=== PATIENT | female | born 1995 | race Caucasian/White ===

== ENCOUNTER 2016-02-28 23:03 | Emergency (ER) | payer MEDICAID ==
[~2016-02-28] VITALS: Ht 157.5 cm; Wt 52.5 kg
[2016-02-28 23:26] VITALS: Ht 157.5 cm; Wt 52.5 kg
[2016-02-29] MEDS ORDERED: BEN25 PO (02:41)
[2016-02-29] MEDS ORDERED: HC1C30 TOP (02:41)
--- NOTE | 2016-02-29 02:46 | ERD ---
ER Documentation Chief Complaint Date/Time DATE: 02/29/16 TIME: 02:42 Chief Complaint scaterred body rashes HPI Patient is a 20-year-old female who presents to the emergency department with diffuse body rash and itching. Patient states that she spent last night at her cousin's house and when she woke up this morning, she noticed lesions to her hands, wrists and legs. Lesions are erythematous and itchy. Patient denies any new creams, new foods, new environment or new pets. Patient denies any throat swelling, tongue swelling, shortness of breath. Patient denies any fevers, chills, nausea, vomiting. Patient states her LMP=6 months ago. Patient is currently on OCPs. ROS All systems reviewed and are negative except as per history of present illness. Medications Home Meds Active Scripts Diphenhydramine Hcl* (Benadryl*) 25 Mg Cap, 25 MG PO Q6, #30 CAP Prov:CONNIE CORDERO PA-C 02/29/16 Hydrocortisone* Topical (Hydrocortisone* Topical) 1%-28.35 Gm Cream..g., 1 APPLIC TOP Q6 Y for ITCHING, #1 TUB Prov:CONNIE CORDERO PA-C 02/29/16 Reported Medications [None] No Conflict Check 04/15/09 Allergies Allergies: Coded Allergies: No Known Allergy (Verified , 01/21/12) PMhx/Soc History of Surgery: No Hx Neurological Disorder: No Hx Respiratory Disorders: No Hx Cardiac Disorders: No Hx Miscellaneous Medical Probl: No Hx Alcohol Use: No Hx Substance Use: No Hx Tobacco Use: No Physical Exam Vitals Vital Signs Date Time Temp Pulse Resp B/P Pulse Ox O2 Delivery O2 Flow Rate FiO2 02/28/16 23:26 98.3 98 20 134/60 100 Physical Exam GENERAL: Well-developed, well-nourished female. Appears in no acute distress. Speaking in full sentences HEAD: Normocephalic, atraumatic. No deformities or ecchymosis. EYE: Pupils equal, round, and reactive to light. EOMs intact. No conjunctival erythema. No scleral icterus. No eye discharge. ENT: External ear without any masses or tenderness. Auditory canals clear bilaterally. TM visualized bilaterally, non-erythematous, non-bulging. Nasal mucosa pink with no discharge. Oropharynx is pink without any tonsillar erythema or exudates. No uvula deviation. No kissing tonsils. No throat swelling. No tongue swelling. NECK: Supple. No lymphadenopathy or thyromegaly. No meningismus.Trachea midline. LUNG: Clear to auscultation bilaterally. No rhonchi, wheezing, rales or coarse breath sounds. HEART: Regular rate and rhythm. No murmurs, rubs or gallops. ABDOMEN: Soft, nontender, and nondistended. Positive bowel sounds in all four quadrants. No rebound tenderness, no guarding. (-) McBurney's point tenderness. No CVA tenderness. BACK: No midline tenderness. EXTREMITES: Equal pulses bilaterally. No peripheral clubbing, cyanosis or edema. No unilateral leg swelling. NEUROLOGIC: Alert and oriented to person, place and time. Moving all four extremities. 5/5 strength in all extremities. Normal speech. Steady gait. (-) Brudzinski sign- no flexion of the hips and knees noted with neck flexion. (-) Kernigs sign- patient able to extend knee to 180 degrees with hip flexion, no hamstring stiffness noted. SKIN: Normal color. Warm and dry. Numerous circular erythematous papular lesions noted on bilateral hands, wrists and lower legs. No lymphatic streaking. No signs of extremity swelling or warmth. Results 24 hrs Current Medications Medications (Trade) Dose Ordered Sig/Terri Route PRN Reason Start Time Stop Time Status Last Admin Dose Admin Diphenhydramine HCl (Benadryl) 25 mg ONCE ONCE PO 02/29/16 03:00 02/29/16 03:00 DC 02/29/16 02:56 Procedures/MDM MEDICAL DECISION MAKING: This is a 20-year-old female who presents with numerous erythematous papular lesions throughout her body. Patient stated the lesions are itchy in nature. Vital signs were reviewed. Patient was afebrile. Patient is not diabetic. Patient was given benadryl here in the emergency department which she reported did help with the itching. Given these findings, the patients presentation is most consistent with insect bites. I have a much lower clinical concern for necrotizing fasciitis, sepsis, gangrene, Rich-Jean Pierre syndrome, toxic epidural necrolysis, cellulitis, herpes zoster, viral exanthem, anaphylaxis, allergic reaction, allergic contact dermatitis, irritant contact dermatitis, fungal infection. PRESCRIPTIONS: Benadryl Hydrocortisone cream DISCHARGE: At this time, patient is stable for discharge and outpatient management. I have advised the patient to avoid scratching the lesions. I have instructed the patient to follow-up with his/her primary care physician in 1-2 days. If symptoms persist, patient may need to see a riveter hand for further examinations and testing. I have instructed the patient to promptly return to the ER at any time for any new or worsening symptoms including increased pain, fever, redness, swelling, warmth, difficulty breathing or vomiting. The patient and/or family expressed understanding of and agreement with this plan. All questions were answered. Home care instructions were provided. Departure Diagnosis: Primary Impression: Bug bite Encounter type: initial encounter Qualified Code: W57.XXXA - Bug bite, initial encounter Additional Impression: Rash Condition: Stable Patient Instructions: Self-Care for Skin Rashes, Insect Bites and Stings Additional Instructions: Call your primary care doctor TOMORROW for an appointment during the next 1-2 days.See the doctor sooner or return here if your condition worsens before your appointment time. Return for any new or worsening symptoms including difficulty breathing, shortness of breath, tongue swelling, throat swelling, fevers, chills, warmth, swelling. Avoid scratching affected areas. CONNIE CORDERO PA-C Feb 29, 2016 02:46
[2016-02-29] MEDS ORDERED: DIPHENHYDRAMINE 25 MG CAP PO ONE (03:00)
== END 2016-02-29 02:56 | disposition home or self-care (01) ==
LOC: FTE 23:03
DX: R21 Rash and other nonspecific skin eruption (principal); W57.XXXA Bitten or stung by nonvenomous insect and other nonvenomous arthropods, initial encounter
CPT/HCPCS: Z7502; Z7610; 99283

== ENCOUNTER 2016-03-27 10:12 | Emergency (ER) | payer MEDICAID, OTHER ==
[~2016-03-27] VITALS: Ht 165.1 cm; Wt 51.5 kg
[~2016-03-27 10:12] MED LIST: BEN25 PO; HC1C30 TOP
[2016-03-27 10:14] VITALS: Ht 165.1 cm; Wt 51.5 kg
[2016-03-27] MEDS ORDERED: SOD CHLORIDE 0.9% 1,000 ML IV STA (10:45)
[2016-03-27 10:58] LABS: URINE BLOOD (Dip) POC Negative (NEGATIVE)
[2016-03-27 11:23] LABS: BASOPHILS % 0.1 % (0.0-2.0); HEMATOCRIT 41.2 % (37.0-47.0); HEMOGLOBIN 14.2 g/dl (12.0-16.0); LYMPHOCYTES # 0.9 10^3/ul (0.8-2.9); LYMPHOCYTES % 8.6 % (18.0-55.0); MEAN CORPUSCULAR HEMOGLOBIN 31.3 pg (29.0-33.0); MEAN CORPUSCULAR HGB CONC 34.4 g/dl (32.0-37.0); MEAN CORPUSCULAR VOLUME 91.1 fl (72.0-104.0); MEAN PLATELET VOLUME 7.6 fl (7.4-10.4); MONOCYTE # 0.6 10^3/ul (0.3-0.9); MONOCYTES % 6.1 % (0.0-13.0); NEUTROPHIL # 8.9 10^3/ul (1.6-7.5); NEUTROPHILS % 85.2 % (30.0-74.0); PLATELET COUNT 218 10^3/UL (140-440); RED BLOOD COUNT 4.52 10^6/ul (4.20-5.40); RED CELL DISTRIBUTION WIDTH 13.4 % (11.5-14.5); UNCORRECTED WBC 10.4 10^3/ul (4.8-10.8); WHITE BLOOD COUNT 10.4 10^3/ul (4.8-10.8)
[2016-03-27 11:25] LABS: ALBUMIN 4.7 g/dl (3.3-4.9); POTASSIUM 4.4 mmol/L (3.5-5.1)
[2016-03-27 11:27] LABS: CREATININE 1.29 mg/dl (0.44-1.00)
[2016-03-27 11:28] LABS: ALBUMIN/GLOBULIN RATIO 1.46; BILIRUBIN,INDIRECT 0.8 mg/dl (0-1.1); BILIRUBIN,TOTAL 0.8 mg/dl (0.2-1.3); TOTAL PROTEIN 7.9 g/dl (6.1-8.1)
[2016-03-27 11:31] LABS: CONDITION 1
[2016-03-27] MEDS ORDERED: ONDANSETRON 4 MG INJ IV STA (12:06)
[2016-03-27] MEDS ORDERED: ONDA4TAB14 PO (13:29)
[2016-03-27 13:40] VITALS: BP 116/67; PULSE 88; RESP 18; TEMP 98.1
--- NOTE | 2016-03-27 14:29 | ERD ---
ER Documentation Chief Complaint Date/Time DATE: 03/27/16 TIME: 14:23 Chief Complaint vomiting started yesterday,s/p wisdom tooth removal HPI 20-year-old female with no significant past medical history presents the ED complaining of nausea and vomiting after receiving anesthesia yesterday for a wisdom tooth removal. States that she got 4 with some teeth removed yesterday. States that she has had slight loss of appetite. Reports that she is taking amoxicillin, ibuprofen, [place]. States that she was unable to keep any food or water down. Denies any fever, chills, abdominal pain, nausea, vomiting, diarrhea. ROS All systems reviewed and are negative except as per history of present illness. Medications Home Meds Active Scripts Ondansetron (Ondansetron Odt) 4 Mg Tab.rapdis, 4 MG PO Q6H Y for NAUSEA AND/OR VOMITING, #10 TAB Prov:PARTH DOYLE PA-C 03/27/16 Diphenhydramine Hcl* (Benadryl*) 25 Mg Cap, 25 MG PO Q6, #30 CAP Prov:CONNIE CORDERO PA-C 02/29/16 Hydrocortisone* Topical (Hydrocortisone* Topical) 1%-28.35 Gm Cream..g., 1 APPLIC TOP Q6 Y for ITCHING, #1 TUB Prov:CONNIE CORDERO PA-C 02/29/16 Reported Medications [None] No Conflict Check 04/15/09 Allergies Allergies: Coded Allergies: No Known Allergy (Verified , 03/27/16) PMhx/Soc History of Surgery: No Hx Neurological Disorder: No Hx Respiratory Disorders: No Hx Cardiac Disorders: No Hx Miscellaneous Medical Probl: No Hx Alcohol Use: No Hx Substance Use: No Hx Tobacco Use: No Smoking Status: Never smoker Physical Exam Vitals Vital Signs Date Time Temp Pulse Resp B/P Pulse Ox O2 Delivery O2 Flow Rate FiO2 03/27/16 13:40 98.1 88 18 116/67 98 Room Air 03/27/16 10:14 97.1 110 18 119/74 98 Physical Exam Const: [id number], well-nourished. In no acute distress. Head: Atraumatic, normocephalic Eyes: Normal Conjunctiva without injection. No purulent discharge. ENT: Normal external ear, nose. Moist oropharynx without tonsillar exudates. Non -erythematous pharynx. Uvula midline. No drooling. No trismus. Neck: No cervical midline tenderness. Full range of motion. No meningismus. No cervical lymphadenopathy. No JVD. Resp: Clear to auscultation bilaterally. No wheezing, rhonchi, rales, or crackles. No accessory muscle use. No retractions. Cardio: Regular rate and rhythm. No murmurs, rubs or gallops. Abd: Soft, nontender to palpation, non distended. Normal bowel sounds. No palpable masses. No rebound tenderness. No guarding. Negative McBurney's point. Negative psoas sign. Negative obturator sign. Skin: No petechiae or rashes Back: No midline tenderness. No CVA tenderness. Ext: No cyanosis, or edema. Neur: Awake and alert. Normal gait. Normal coordination. Psych: Normal Mood and Affect Result Diagram: 03/27/16 1057 03/27/16 1057 Results 24 hrs Laboratory Tests Test 03/27/16 10:57 03/27/16 11:00 Alanine Aminotransferase (ALT/SGPT) 17IU/L Albumin 4.7g/dl Albumin/Globulin Ratio 1.46 Alkaline Phosphatase 54IU/L Anion Gap 20 Aspartate Amino Transf (AST/SGOT) 21IU/L Basophils # 0.010^3/ul Basophils % 0.1% Blood Urea Nitrogen 9mg/dl Calcium Level 10.0mg/dl Carbon Dioxide Level 25mmol/L Chloride Level 106mmol/L Creatinine 1.29mg/dl Direct Bilirubin 0.00mg/dl Eosinophils # 0.010^3/ul Eosinophils % 0.0% Globulin 3.20g/dl Glucose Level 87mg/dl Hematocrit 41.2% Hemoglobin 14.2g/dl Indirect Bilirubin 0.8mg/dl Lipase 52U/L Lymphocytes # 0.910^3/ul Lymphocytes % 8.6% Mean Corpuscular Hemoglobin 31.3pg Mean Corpuscular Hemoglobin Concent 34.4g/dl Mean Corpuscular Volume 91.1fl Mean Platelet Volume 7.6fl Monocytes # 0.610^3/ul Monocytes % 6.1% Neutrophils # 8.910^3/ul Neutrophils % 85.2% Nucleated Red Blood Cells # 0.010^3/ul Nucleated Red Blood Cells % 0.0/100WBC Platelet Count 50596^3/UL Potassium Level 4.4mmol/L Red Blood Count 4.5210^6/ul Red Cell Distribution Width 13.4% Sodium Level 147mmol/L Total Bilirubin 0.8mg/dl Total Protein 7.9g/dl White Blood Count 10.410^3/ul Bedside Urine Blood Negative Bedside Urine Glucose (UA) Negative Bedside Urine Ketones (LAB) 1+ Bedside Urine Leukocyte Esterase (L 1+ Bedside Urine Nitrite (LAB) Negative Bedside Urine Protein (LAB) Negative Bedside Urine pH (LAB) 6.0 Current Medications Medications (Trade) Dose Ordered Sig/Terri Route PRN Reason Start Time Stop Time Status Last Admin Dose Admin Sodium Chloride (NS) 1,000 ml @ 1,000 mls/hr Q1H STAT IV 03/27/16 10:45 03/27/16 11:44 DC 03/27/16 11:00 Ondansetron HCl (Zofran Inj) 4 mg ONCE STAT IV 03/27/16 12:06 03/27/16 12:07 DC 03/27/16 12:12 Procedures/MDM This is a 20-year-old female with no significant past medical history presents to the ED complaining of nausea and vomiting after being on anesthesia yesterday for a wisdom teeth removal. Patient is afebrile and nontoxic- appearing. Patient was further worked up with CBC, CMP, lipase, UA, urine . Patient's symptoms have improved after treatment with 4 mg IV Zofran. CBC: No leukocytosis. No e/o of systemic infection. No e/o anemia. CMP: No e/o severe acidosis, alkalosis, renal failure, diabetic ketoacidosis, liver disease patient's creatinine is 1.29 likely secondary to dehydration. Patient was treated here in the ED with 1 more liter normal saline. Lipase within normal limits. Urine: No leukocyte esterase, no nitrites, no hematuria. Urine : Negative Patient symptoms are likely secondary to the side effects of anesthesia. A differential diagnosis considered includes but is not limited to gastritis, GERD , peptic ulcer disease, cholecystitis, choledocholithiasis, cholangitis, pancreatitis, appendicitis, bowel obstruction, ileus, volvulus, nephrolithiasis , pyelonephritis, hepatitis, perforated viscus, diverticulitis, abdominal hernia , acute abdomen, mesenteric ischemia or other emergent conditions Discharge medications: Zofran Follow up with primary care physician in 1-2 days for referral to meteorological observer. Instructed patient to return to the ED sooner for any worsening symptoms. Patient's questions were answered. Patient understood and agreed with discharge plan. Patient discharged stable. Departure Diagnosis: Primary Impression: Nausea after anesthesia Encounter type: initial encounter Qualified Code: T88.59XA - Nausea after anesthesia, initial encounter Additional Impression: Vomiting Vomiting type: unspecified Vomiting Intractability: unspecified Nausea presence: unspecified Qualified Code: R11.10 - Vomiting, intractability of vomiting not specified, presence of nausea not specified, unspecified vomiting type Condition: Stable Patient Instructions: Types of Anesthesia, Nausea and Vomiting-Adult Referrals: [facility] YOU HAVE RECEIVED A MEDICAL SCREENING EXAM AND THE RESULTS INDICATE THAT YOU DO NOT HAVE A CONDITION THAT REQUIRES URGENT TREATMENT IN THE EMERGENCY DEPARTMENT. FURTHER EVALUATION AND TREATMENT OF YOUR CONDITION CAN WAIT UNTIL YOU ARE SEEN IN YOUR DOCTORS OFFICE WITHIN THE NEXT 1-2 DAYS. IT IS YOUR RESPONSIBILITY TO MAKE AN APPOINTMENT FOR FOLOW-UP CARE. IF YOU HAVE A PRIMARY DOCTOR --you should call your primary doctor and schedule an appointment IF YOU DO NOT HAVE A PRIMARY DOCTOR YOU CAN CALL OUR PHYSICIAN REFERRAL HOTLINE AT IF YOU CAN NOT AFFORD TO SEE A PHYSICIAN YOU CAN CHOSE FROM THE FOLLOWING [facility] [address] [facility]. [facility] [address] [facility] [facility] [address] [facility] [facility] [address] [facility] [facility] [address] [facility]. [facility]. [address] [facility]. [facility] YOU HAVE RECEIVED A MEDICAL SCREENING EXAM AND THE RESULTS INDICATE THAT YOU DO NOT HAVE A CONDITION THAT REQUIRES URGENT TREATMENT IN THE EMERGENCY DEPARTMENT. FURTHER EVALUATION AND TREATMENT OF YOUR CONDITION CAN WAIT UNTIL YOU ARE SEEN IN YOUR DOCTORS OFFICE WITHIN THE NEXT 1-2 DAYS. IT IS YOUR RESPONSIBILITY TO MAKE AN APPOINTMENT FOR FOLOW-UP CARE. IF YOU HAVE A PRIMARY DOCTOR --you should call your primary doctor and schedule and appointment IF YOU DO NOT HAVE A PRIMARY DOCTOR YOU CAN CALL OUR PHYSICIAN REFERRAL HOTLINE AT . IF YOU CAN NOT AFFORD TO SEE A PHYSICIAN YOU CAN CHOSE FROM THE FOLLOWING [facility] INSTITUTIONS: [facility] [address] [place] [address] [facility] [address] [place] [address] [facility] + [facility] [address] [place] [address] [facility] URGENT CARE/SPECIALTIES Additional Instructions: FOLLOW UP WITH YOUR PRIMARY CARE PHYSICIAN TOMORROW. Return to this facility if you are not improving as expected. PARTH DOYLE PA-C Mar 27, 2016 14:29
== END 2016-03-27 13:41 | disposition home or self-care (01) ==
LOC: FTE 10:12
DX: T88.59XA Other complications of anesthesia, initial encounter (principal); T41.205A Adverse effect of unspecified general anesthetics, initial encounter; Y70.8 Miscellaneous anesthesiology devices associated with adverse incidents, not elsewhere classified
CPT/HCPCS: 36415; 80053; 81003; 83690; 85025; 96374; J2405; J7030; Z7502

== ENCOUNTER 2017-05-12 22:56 | Emergency (ER) | END 2017-05-13 01:59 | disposition home or self-care (01) ==

== ENCOUNTER 2017-09-26 02:39 | Emergency (ER) | END 2017-09-26 04:30 | disposition home or self-care (01) ==

== ENCOUNTER 2018-06-16 16:51 | Emergency (ER) | payer OTHER ==
[~2018-06-16] VITALS: Ht 165.1 cm; Wt 61.2 kg
[~2018-06-16 16:51] MED LIST changes: +ALBU18HF INHALATION; +ALBU8.5H8 INH; +AZIT250T PO; +CETI10CA PO; +GUAI1TBM12 PO; +GUAI473L22 PO; +IBUP-1542 PO; +IBUP-1561 PO; +ONDA4TAB14 PO
[2018-06-16 17:31] VITALS: Ht 165.1 cm; Wt 61.2 kg
--- NOTE | 2018-06-16 19:06 | ERD ---
ER Documentation Chief Complaint Chief Complaint pt has left ear painand st x 1 day HPI Is a 22-year-old female who presents the emergency room with complaint of dry cough x2 weeks. Today woke up with left ear pain that feels congested and beginning to cause a headache. No fevers, no nausea no vomiting. Patient does not smoke. She is currently on her menstrual period. ROS All systems reviewed and are negative except as per history of present illness. Medications Home Meds Active Scripts Albuterol Sulfate* (Ventolin HFA*) 18 Gm Hfa.aer.ad, 2 PUFF INHALATION Q4H, #1 INHALER Prov:HEIDE,MEÑO 09/26/17 Guaifenesin/Dextromethorphan (Mucinex Dm ER 1,200-60 mg Tab) 1 Each Tbmp.12hr, 1 EACH PO Q12 for 5 Days, #20 TAB Prov:HEIDE,MEÑO 09/26/17 Ibuprofen* (Motrin*) 400 Mg Tab, 400 MG PO Q6, #30 TAB Prov:HEIDE,MEÑO 09/26/17 Cetirizine Hcl* (Zyrtec*) 10 Mg Capsule, 10 MG PO DAILY, #30 TAB.CHEW Prov:RANDALL WHELAN NP 05/13/17 Guaifenesin-Codeine Phosphate* (Guaifenesin* AC Cough Syrup) 473 Ml Liquid, 10 ML PO Q4H PRN for COUGH, #60 ML Prov:RANDALL WHELAN NP 05/13/17 Albuterol Sulfate* (Proair HFA*) 8.5 Gm Hfa.aer.ad, 2 PUFF INH Q4H PRN for WHEEZING AND SOB, #1 INHALER Prov:RANDALL WHELAN NP 05/13/17 Azithromycin* (Zithromax*) 250 Mg Tablet, 250 MG PO .JEANNIE DIRECTED, #6 TAB TAKE 500 MG (2 TABS) THE FIRST DAY THEN 250 MG (1 TAB) DAYS 2-5 Prov:RANDALL WHELAN NP 05/13/17 Ibuprofen* (Motrin*) 600 Mg Tab, 600 MG PO Q6H PRN for PAIN AND OR ELEVATED TEMP, #30 TAB Prov:RANDALL HWELAN NP 05/13/17 Ondansetron (Ondansetron Odt) 4 Mg Tab.rapdis, 4 MG PO Q6H PRN for NAUSEA AND/OR VOMITING, #10 TAB Prov:PARTH DOYLE PA-C 03/27/16 Diphenhydramine Hcl* (Benadryl*) 25 Mg Cap, 25 MG PO Q6, #30 CAP Prov:CONNIE CORDERO PA-C 02/29/16 Hydrocortisone* Topical (Hydrocortisone* Topical) 1%-28.35 Gm Cream..g., 1 APPLIC TOP Q6 PRN for ITCHING, #1 TUB Prov:CONNIE CORDERO PA-C 02/29/16 Reported Medications [None] No Conflict Check 04/15/09 Allergies Allergies: Coded Allergies: No Known Allergy (Verified , 03/27/16) PMhx/Soc Medical and Surgical Hx: pt denies Medical Hx, pt denies Surgical Hx History of Surgery: No Anesthesia Reaction: No Hx Neurological Disorder: No Hx Respiratory Disorders: No Hx Cardiac Disorders: No Hx Psychiatric Problems: No Hx Miscellaneous Medical Probl: No Hx Alcohol Use: Yes (SOCIAL ) Hx Substance Use: Yes (MARIJUANA ) Hx Tobacco Use: No Smoking Status: Never smoker FmHx Family History: No diabetes, No coronary disease, No other Physical Exam Vitals Vital Signs Date Temp Pulse Resp B/P (MAP) Pulse Ox O2 O2 Flow FiO2 Time Delivery Rate 06/16/18 97.5 82 18 122/64 100 17:31 (83) Physical Exam Const: No acute distress Head: Atraumatic Eyes: Normal Conjunctiva, PERRL ENT: Normal right TM and external ear, Left TM dull and bulging, erythema surrounding TM extending into canal, no exudate, pharynx pink without lesions or exudate Neck: Full range of motion. No meningismus. No lymphadenopathy Resp: Clear to auscultation bilaterally, Cardio: Regular rate and rhythm, no murmurs Abd: Soft, non tender, non distended. Normal bowel sounds Skin: No petechiae or rashes Back: No midline or flank tenderness Ext: No cyanosis, or edema Neur: Awake and alert Psych: Normal Mood and Affect Procedures/MDM This is a 22-year-old female who is emergency room with dry cough and ear pain. ED COURSE: The patient was stable throughout ED course. I kept the patient and/or family informed of laboratory and diagnostic imaging results throughout the ED course. EKG: MDM: Patient's ENT symptoms have stabilized while in the department and are appropriate for outpatient work up. Exam and w/u not consistent w/ deep space infection of the face, throat, or mastoids. No evidence of impending TM rupture, airway compromise, or meningitis. Patient instructed on use antibiotics, antipyretic, and analgesic. Instructed to follow-up with primary care provider in 3-5 days for reassessment. Instructed to return to emergency department immediately for worsening or changing of symptoms. DISPOSITION: The patient has been discharge home to follow-up with community physician. Departure Diagnosis: Primary Impression: Otitis media Additional Impression: Allergic rhinitis Patient Instructions: Allergic Rhinitis, Otitis Media, Abx Tx (Adult) Referrals: [facility] Additional Instructions: Thank you very much for allowing us to participate in your care. Your health and safety is our top priority at [facility]. Call your primary care doctor TOMORROW for an appointment during the next 2-4 days and bring all the information and medications prescribed. Have prescriptions filled and follow precisely the directions on the label. If the symptoms get worse and your provider is unavailable, return to the Emergency Department immediately. RODGER JIMENEZ NP Jun 16, 2018 19:06
[2018-06-16] MEDS ORDERED: PSEU60TA2 PO (19:11)
[2018-06-16] MEDS ORDERED: FLUT9.9S NASAL (19:11)
[2018-06-16] MEDS ORDERED: AMOX500C2 PO (19:11)
[2018-06-16 19:27] VITALS: BP 120/67; PULSE 66; RESP 18
== END 2018-06-16 19:28 | disposition home or self-care (01) ==
LOC: FTE 16:51
DX: H66.92 Otitis media, unspecified, left ear (principal); J30.9 Allergic rhinitis, unspecified
CPT/HCPCS: 99283

== ENCOUNTER 2018-07-08 19:46 | Emergency (ER) | payer OTHER ==
[~2018-07-08] VITALS: Ht 167.6 cm; Wt 59.0 kg
[~2018-07-08 19:46] MED LIST changes: +AMOX500C2 PO; +FLUT9.9S NASAL; +PSEU60TA2 PO
[2018-07-08 20:16] VITALS: Ht 167.6 cm; Wt 59.0 kg
[2018-07-09] MEDS ORDERED: AZIT250T PO (00:24)
[2018-07-09] MEDS ORDERED: MED4DP PO (00:24)
[2018-07-09] MEDS ORDERED: ALBU8.5H8 INH (00:24)
[2018-07-09] MEDS ORDERED: PROM6.2515 PO (00:24)
--- NOTE | 2018-07-09 00:29 | ERD ---
ER Documentation Chief Complaint Chief Complaint PERSISTENT COUGH X 2 WEEKS, + COUGHING UP LITTLE BITS OF BLOOD HPI 22-year-old female presents to the ED complaining of persistent dry cough x1 month. Patient was seen here 2 weeks ago and diagnosed with acute otitis media. She is placed on antibiotics which improved her ear pain. She states she has been having progressively worsening cough over the past 2 weeks. She reports shortness of breath, chest tightness and occasional chest pain with coughing. States cough is productive in nature with blunt tinged phlegm. Patient states she was diagnosed with bronchitis 1 year ago and today symptoms are similar. She states she occasionally smokes weed. No fevers or chills. No other complaints. ROS All systems reviewed and are negative except as per history of present illness. Medications Home Meds Active Scripts Azithromycin* (Zithromax*) 250 Mg Tablet, 250 MG PO .ZPACK DIRECTED, #6 TAB TAKE 500 MG (2 TABS) THE FIRST DAY THEN 250 MG (1 TAB) DAYS 2-5 Prov:MICHAELIGRHOMA BARRON PA-C 07/09/18 Methylprednisolone* (Medrol* DOSE PACK) 4 Mg/Dose-Pack Tab.ds.pk, 4 MG PO . DIRECTED, #1 PACKET Prov:HOMA MCCOY PA-C 07/09/18 Albuterol Sulfate* (Proair HFA*) 8.5 Gm Hfa.aer.ad, 2 PUFF INH Q4H PRN for WHEEZING AND SOB, #1 INHALER Prov:HOMA MCCOY PA-C 07/09/18 Promethazine Hcl* (Promethazine Hcl* Syrup) 6.25 Mg/5 Ml Syrup, 12.5 MG PO Q6H PRN for COUGH for 7 Days, ML Prov:HOMA MCCOY PA-C 07/09/18 Pseudoephedrine Hcl* (Pseudoephedrine Hcl*) 60 Mg Tablet, 60 MG PO Q6 PRN for CONGESTION for 5 Days, #10 TAB Prov:RODGER JIMENEZ NP 06/16/18 Fluticasone Propionate (Flonase Allergy Relief) 9.9 Ml [place].susp, 1 SPRAY NASAL BID, #1 BOTTLE TO EACH NOSTRIL Prov:RODGER JIMENEZ NP 06/16/18 Amoxicillin* (Amoxicillin*) 500 Mg Cap, 1000 MG PO BID for otitis for 5 Days, #10 CAP Prov:RODGER JIMENEZ DAMPPROOFER 06/16/18 Albuterol Sulfate* (Ventolin HFA*) 18 Gm Hfa.aer.ad, 2 PUFF INHALATION Q4H, #1 INHALER Prov:HEIDE,MEÑO 09/26/17 Guaifenesin/Dextromethorphan (Mucinex Dm ER 1,200-60 mg Tab) 1 Each Tbmp.12hr, 1 EACH PO Q12 for 5 Days, #20 TAB Prov:HEIDE,MEÑO 09/26/17 Ibuprofen* (Motrin*) 400 Mg Tab, 400 MG PO Q6, #30 TAB Prov:HEIDE,MEÑO 09/26/17 Cetirizine Hcl* (Zyrtec*) 10 Mg Capsule, 10 MG PO DAILY, #30 TAB.CHEW Prov:RANDALL WHELAN NP 05/13/17 Guaifenesin-Codeine Phosphate* (Guaifenesin* AC Cough Syrup) 473 Ml Liquid, 10 ML PO Q4H PRN for COUGH, #60 ML Prov:RANDALL WHELAN NP 05/13/17 Albuterol Sulfate* (Proair HFA*) 8.5 Gm Hfa.aer.ad, 2 PUFF INH Q4H PRN for WHEEZING AND SOB, #1 INHALER Prov:RANDALL WHELAN NP 05/13/17 Azithromycin* (Zithromax*) 250 Mg Tablet, 250 MG PO .JEANNIE DIRECTED, #6 TAB TAKE 500 MG (2 TABS) THE FIRST DAY THEN 250 MG (1 TAB) DAYS 2-5 Prov:RANDALL WHELAN NP 05/13/17 Ibuprofen* (Motrin*) 600 Mg Tab, 600 MG PO Q6H PRN for PAIN AND OR ELEVATED TEMP, #30 TAB Prov:RANDALL WHELAN NP 05/13/17 Ondansetron (Ondansetron Odt) 4 Mg Tab.rapdis, 4 MG PO Q6H PRN for NAUSEA AND/OR VOMITING, #10 TAB Prov:PARTH DOYLE PA-C 03/27/16 Diphenhydramine Hcl* (Benadryl*) 25 Mg Cap, 25 MG PO Q6, #30 CAP Prov:CONNIE CORDERO AMANDA 02/29/16 Hydrocortisone* Topical (Hydrocortisone* Topical) 1%-28.35 Gm Cream..g., 1 APPLIC TOP Q6 PRN for ITCHING, #1 TUB Prov:CONNIE CORDERO PA-C 02/29/16 Reported Medications [None] No Conflict Check 04/15/09 Allergies Allergies: Coded Allergies: No Known Allergy (Verified , 03/27/16) PMhx/Soc Medical and Surgical Hx: pt denies Medical Hx, pt denies Surgical Hx History of Surgery: No Anesthesia Reaction: No Hx Neurological Disorder: No Hx Respiratory Disorders: No Hx Cardiac Disorders: No Hx Psychiatric Problems: No Hx Miscellaneous Medical Probl: No Hx Alcohol Use: Yes (SOCIAL ) Hx Substance Use: Yes (MARIJUANA ) Hx Tobacco Use: No Smoking Status: Current some day smoker Physical Exam Vitals Vital Signs Date Temp Pulse Resp B/P (MAP) Pulse Ox O2 O2 Flow FiO2 Time Delivery Rate 07/08/18 98.6 83 16 120/65 99 20:16 (83) Physical Exam Const: No acute distress. No respiratory distress. Head: Atraumatic Eyes: Normal Conjunctiva ENT: Normal External Ears, Nose and Mouth. Neck: Full range of motion. No meningismus. Resp: Clear to auscultation bilaterally Cardio: Regular rate and rhythm, no murmurs Abd: Soft, non tender, non distended. Normal bowel sounds Skin: No petechiae or rashes Back: No midline or flank tenderness Ext: No cyanosis, or edema Neur: Awake and alert Psych: Normal Mood and Affect Procedures/MDM LABS & DIAGNOSTIC IMAGING: PROCEDURE: Chest. CLINICAL INDICATION: Cough. TECHNIQUE: Single frontal view of the chest was obtained. COMPARISON: None. FINDINGS: The cardiac silhouette is within normal limits. The aortic arch is unremarkable. There is no focal consolidation, vascular congestion or pleural effusion. There is no pneumothorax. IMPRESSION: No evidence for active cardiopulmonary disease. MEDICAL DECISION MAKIN-year-old female presents with progressively worsening cough x1 month. She has no fever here. Vital signs are stable. No hypoxia. Lung sounds are unremarkable. Chest x-ray is negative for pneumonia. Given patient's ongoing symptoms, will treat for acute bacterial bronchitis. She is given Rx Zithromax along with other supportive medications. I recommended she stop smoking marijuana as this could be further exacerbating her symptoms. She is told to follow-up with your regular doctor in 1 week. She can return here for new or worsening symptoms. PRESCRIPTIONS: Zithromax, pro-air HFA, prednisone, promethazine SPECIALIST FOLLOW UP RECOMMENDED: None Patient has been advised to follow up with primary care in 1-2 days. Departure Diagnosis: Primary Impression: Bronchitis Condition: Stable Patient Instructions: Bronchitis With Wheezing (Adult) Referrals: [facility] YOU HAVE RECEIVED A MEDICAL SCREENING EXAM AND THE RESULTS INDICATE THAT YOU DO NOT HAVE A CONDITION THAT REQUIRES URGENT TREATMENT IN THE EMERGENCY DEPARTMENT. FURTHER EVALUATION AND TREATMENT OF YOUR CONDITION CAN WAIT UNTIL YOU ARE SEEN IN YOUR DOCTORS OFFICE WITHIN THE NEXT 1-2 DAYS. IT IS YOUR RESPONSIBILITY TO MAKE AN APPOINTMENT FOR FOLOW-UP CARE. IF YOU HAVE A PRIMARY DOCTOR --you should call your primary doctor and schedule an appointment IF YOU DO NOT HAVE A PRIMARY DOCTOR YOU CAN CALL OUR PHYSICIAN REFERRAL HOTLINE AT IF YOU CAN NOT AFFORD TO SEE A PHYSICIAN YOU CAN CHOSE FROM THE FOLLOWING [facility] [address] [facility]. [facility] [address] [facility] [facility] [address] [facility] [facility] [address] [facility] [facility] [address] [facility]. [facility]. [address] [facility]. [facility] YOU HAVE RECEIVED A MEDICAL SCREENING EXAM AND THE RESULTS INDICATE THAT YOU DO NOT HAVE A CONDITION THAT REQUIRES URGENT TREATMENT IN THE EMERGENCY DEPARTMENT. FURTHER EVALUATION AND TREATMENT OF YOUR CONDITION CAN WAIT UNTIL YOU ARE SEEN IN YOUR DOCTORS OFFICE WITHIN THE NEXT 1-2 DAYS. IT IS YOUR RESPONSIBILITY TO MAKE AN APPOINTMENT FOR FOLOW-UP CARE. IF YOU HAVE A PRIMARY DOCTOR --you should call your primary doctor and schedule and appointment IF YOU DO NOT HAVE A PRIMARY DOCTOR YOU CAN CALL OUR PHYSICIAN REFERRAL HOTLINE AT . IF YOU CAN NOT AFFORD TO SEE A PHYSICIAN YOU CAN CHOSE FROM THE FOLLOWING [facility] INSTITUTIONS: [facility] [address] [place] [address] [facility] [address] [place] [address] [facility] + [facility] [address] [place] [address] [facility]/SPECIALTIES Additional Instructions: Call your primary care doctor TOMORROW for an appointment during the next 2-4 days and bring all the information and medications prescribed. If the symptoms get worse and your provider is unavailable, return to the Emergency Department immediately. HOMA MCCOY PA-C July 09, 2018 00:29
[2018-07-09 00:58] VITALS: BP 116/73; PULSE 92; RESP 18
== END 2018-07-09 01:00 | disposition home or self-care (01) ==
LOC: FTE 19:46
DX: J40 Bronchitis, not specified as acute or chronic (principal); F17.210 Nicotine dependence, cigarettes, uncomplicated
CPT/HCPCS: 71045; Z7502